=== PATIENT | male | born 1975 | race African-American/Black ===

== ENCOUNTER 2017-06-27 10:39 | Outpatient (CLI) | payer OTHER | END 2017-06-27 10:40 | disposition home or self-care (01) | LOC: BICRAD 10:39 | PROVIDERS: ATTEND Internal Medicine | DX: Z02.71 Encounter for disability determination (principal) | CPT/HCPCS: 72100 ==

== ENCOUNTER 2019-08-14 14:06 | Emergency (ER) | payer OTHER ==
--- NOTE | 2019-08-14 15:33 | RAD ---
FRONTAL RADIOGRAPH PELVIS 08/14/19 COMPARISON: None. HISTORY: Fall, trauma, left leg pain. 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 Subchondral sclerosis and lateral acetabular osteophyte formation. Incompletely imaged postoperati ve hardware is present within the proximal left femur. No widening of the sacroiliac joints or pubic symphysis. No displaced fracture or dislocation. IMPRESSION: No acute findings. POS: [facility]
== END 2019-08-14 15:34 | disposition home or self-care (01) ==
LOC: ERS 14:06
DX: S76.012A Strain of muscle, fascia and tendon of left hip, initial encounter (principal); F17.210 Nicotine dependence, cigarettes, uncomplicated; W18.30XA Fall on same level, unspecified, initial encounter
CPT/HCPCS: 72170

== ENCOUNTER 2019-12-18 14:31 | Emergency (ER) | payer OTHER ==
[2019-12-19 12:47] LABS: SARS-CoV-2 MS2 Positive; SARS-CoV-2 N Gene Negative; SARS-CoV-2 S Gene Negative; SARS-CoV-2 by NAA Not Detected (NotDetected); SARS-CoV-2 orf1ab Negative
== END 2019-12-18 14:57 | disposition home or self-care (01) ==
LOC: ERS 14:31
DX: Z20.828 Contact with and (suspected) exposure to other viral communicable diseases (principal); F17.210 Nicotine dependence, cigarettes, uncomplicated
CPT/HCPCS: 87635; 99283; U0003

== ENCOUNTER 2020-11-28 12:44 | Outpatient (CLI) | payer OTHER | END 2020-11-28 12:45 | disposition home or self-care (01) | LOC: BICRAD 12:44 | PROVIDERS: ATTEND Nurse Practitioner Family | DX: M25.561 Pain in right knee (principal); M25.562 Pain in left knee; M17.0 Bilateral primary osteoarthritis of knee ==

== ENCOUNTER 2021-03-04 18:47 | Emergency (ER) | payer OTHER ==
[2021-03-04] MEDS ORDERED: Ketorolac Tromethamine 30 MG/ML VIAL ONE (20:23)
== END 2021-03-04 21:34 | disposition home or self-care (01) ==
LOC: ERS 18:47
DX: S39.012A Strain of muscle, fascia and tendon of lower back, initial encounter (principal); S76.012A Strain of muscle, fascia and tendon of left hip, initial encounter; S76.011A Strain of muscle, fascia and tendon of right hip, initial encounter; M25.561 Pain in right knee; M25.562 Pain in left knee; Z87.891 Personal history of nicotine dependence; V43.52XA Car driver injured in collision with other type car in traffic accident, initial encounter; Y92.410 Unspecified street and highway as the place of occurrence of the external cause
CPT/HCPCS: 72100; 96372; J1885

== ENCOUNTER 2023-02-01 03:20 | Emergency (ER) | payer OTHER ==
[2023-02-01] MEDS ORDERED: Acetaminophen 500 MG TAB ONE (04:14)
== END 2023-02-01 04:20 | disposition home or self-care (01) ==
LOC: ERS 03:20
DX: S00.03XA Contusion of scalp, initial encounter (principal); S51.812A Laceration without foreign body of left forearm, initial encounter; S61.412A Laceration without foreign body of left hand, initial encounter; V89.2XXA Person injured in unspecified motor-vehicle accident, traffic, initial encounter
CPT/HCPCS: 12001